=== PATIENT | male | born 1955 | race African-American/Black ===

== ENCOUNTER 2018-07-23 15:28 | Emergency (ER) | payer OTHER ==
[~2018-07-23] VITALS: Ht 167.6 cm; Wt 68.0 kg
[~2018-07-23 15:28] MED LIST: LISI10TA5; METF-414; SIMV20TA6
[2018-07-23] MEDS ORDERED: SODIUM CHLORIDE 0.9% 1,000 ML IV ONE (15:53)
[2018-07-23 16:37] LABS: BASOPHILS % 1.2 % (0.0-2.0); EOSINOPHILS % 8.6 % (0.0-5.0); HEMATOCRIT. 33.2 % (42.0-52.0); LYMPHOCYTES % 21.5 % (20.0-50.0); MEAN CORPUSCULAR HEMOGLOBIN 29.7 pg (28.0-32.0); MEAN CORPUSCULAR VOLUME 89.9 fL (80.0-94.0); MEAN PLATELET VOLUME 8.1 fl (7.4-10.4); MONOCYTES % 6.5 % (2.0-8.0); NEUTROPHILS % 62.2 % (40.0-76.0); PLATELET 191 x1000/uL (130-400); RED BLOOD CELL COUNT 3.69 mill/uL (4.7-6.1); RED CELL DISTRIBUTION WIDTH 16.8 % (11.6-14.6)
[2018-07-23 16:43] LABS: INR 1.1; PROTHROMBIN TIME 11.1 sec (9.6-11.0)
[2018-07-23 16:46] LABS: CHLORIDE 114 mEq/L (98-107)
[2018-07-23 18:32] VITALS: BP 107/74
== END 2018-07-23 18:34 | disposition home or self-care (01) ==
LOC: ER 15:28 → CANBEDREQ 19:08
DX: R55 Syncope and collapse (principal); E86.0 Dehydration; D64.9 Anemia, unspecified; I48.91 Unspecified atrial fibrillation; I11.0 Hypertensive heart disease with heart failure; I50.9 Heart failure, unspecified; E11.9 Type 2 diabetes mellitus without complications; Z86.73 Personal history of transient ischemic attack (TIA), and cerebral infarction without residual deficits; Z87.891 Personal history of nicotine dependence
CPT/HCPCS: 36415; 70450; 71045; 80053; 83605; 84484; 85025; 85610; 93005; 96360; 96361; 99284; J7030